=== PATIENT | male | born 1995 | race Caucasian/White ===

== ENCOUNTER 2020-02-10 18:07 | Emergency (ER) | payer OTHER ==
[~2020-02-10] VITALS: Ht 170.2 cm; Wt 69.9 kg
--- NOTE | 2020-02-10 18:18 | PHYS DOC ---
General Adult HPI: HPI: Patient is a 24 year old male who presents with above hx and complaints (JOHNNY PEGUERO MD) HPI: Patient is a 24-year-old male presenting to the ED today complaining of an abscess on the left lateral neck as well as the left cheek region. Patient states symptoms began 2 days ago, he was seen at urgent care yesterday and started on clindamycin. He states symptoms have not improved. Denies any fever. Denies any nausea vomiting. He states the abscess on the left side of the neck drained mild amount of yellow-greenish material today. (KWAME BERRY APRN) Review of Systems: Review of Systems: Constitutional: Denies fever or chills Eyes: Denies change in visual acuity HENT: Denies nasal congestion or sore throat Respiratory: Denies cough or shortness of breath Cardiovascular: Denies chest pain or edema GI: Denies abdominal pain, nausea, vomiting, bloody stools or diarrhea : Denies dysuria Musculoskeletal: Denies back pain or joint pain Integument: Denies rash Neurologic: Denies headache, focal weakness or sensory changes Endocrine: Denies polyuria or polydipsia Lymphatic: Denies swollen glands Psychiatric: Denies depression or anxiety (JOHNNY PEGUERO MD) Review of Systems: Constitutional: Denies fever or chills [] Eyes: Denies change in visual acuity, redness, or eye pain [] HENT: Denies nasal congestion or sore throat [] Respiratory: Denies cough or shortness of breath [] Cardiovascular: No additional information not addressed in HPI [] GI: Denies abdominal pain, nausea, vomiting, bloody stools or diarrhea [] : Denies dysuria or hematuria [] Musculoskeletal: Denies back pain or joint pain [] Integument: Reports abscess to the left lateral neck, left cheek Neurologic: Denies headache, focal weakness or sensory changes [] (KWAME BERRY APRN) Physical Exam: PE: Constitutional: Well developed, well nourished, no acute distress, non-toxic appearance. [] HENT: Normocephalic, atraumatic, bilateral external ears normal, oropharynx moist, no oral exudates, nose normal. [] Eyes: PERRLA, EOMI, conjunctiva normal, no discharge. [] Neck: Normal range of motion, no tenderness, supple, no stridor. [] Cardiovascular:Heart rate regular rhythm, no murmur [] Lungs & Thorax: Bilateral breath sounds clear to auscultation [] Abdomen: Bowel sounds normal, soft, no tenderness, no masses, no pulsatile masses. [] Skin: Warm, dry, no erythema, no rash. [] Back: No tenderness, no CVA tenderness. [] Extremities: No tenderness, no cyanosis, no clubbing, ROM intact, no edema. [] Neurologic: Alert and oriented X 3, normal motor function, normal sensory function, no focal deficits noted. [] Psychologic: Affect normal, judgement normal, mood normal. [] (JOHNNY PEGUERO MD) PE: Constitutional: Well developed, well nourished, no acute distress, non-toxic appearance. [] HENT: Normocephalic, atraumatic, bilateral external ears normal, oropharynx moist, no oral exudates, nose normal. [] Eyes: PERRLA, EOMI, conjunctiva normal, no discharge. [] Neck: Normal range of motion, no tenderness, supple, no stridor. [] Cardiovascular:Heart rate regular rhythm, no murmur [] Lungs & Thorax: Bilateral breath sounds clear to auscultation [] Abdomen: Bowel sounds normal, soft, no tenderness, no masses, no pulsatile masses. [] Skin: Bearded face. Airways open, left lateral neck with an indurated area approximately 5 x 3 cm with a couple opened up regions not draining right now. The area is erythematous, there is no fluctuance in the area. The area is warm and tender to touch. Left upper cheek with a tiny scabbed up region approximately 0.5 x 0.5 cm with surrounding cellulitis. There is small amount of swelling noted on the left side of the face, and left lateral neck. Back: No tenderness, no CVA tenderness. [] Extremities: No tenderness, no cyanosis, no clubbing, ROM intact, no edema. [] Neurologic: Alert and oriented X 3, normal motor function, normal sensory function, no focal deficits noted. [] Psychologic: Affect normal, judgement normal, mood normal. [] (KWAME BERRY APRN) EKG: EKG: [] (JOHNNY PEGUERO MD) Radiology/Procedures: Radiology/Procedures: [] (JOHNNY PEGUERO MD) Radiology/Procedures: PROCEDURE: CT SOFT TISSUE NECK W/CONTRAST Exam: CT neck with contrast INDICATION: Left lateral neck abscess TECHNIQUE: Sequential axial images through the neck obtained following the administration of 72 mL of Isovue-370 IV contrast. Sagittal and coronal reformatted images were reconstructed from the axial data and reviewed. Comparisons: None FINDINGS: Visualized intracranial structures are unremarkable. There is mild mucosal thickening of the left maxillary sinus. Cervical vasculature is patent. Nasopharynx, oropharynx, hypopharynx and larynx are unremarkable. Thyroid and salivary glands are within normal limits. There is extensive soft tissue stranding and edema overlying the left face. There is a peripherally enhancing fluid collection overlying the angle of the mandible on the left which measures approximately 1.4 cm seen best on series 3 image 26. Additionally there is a small amount of fluid in the subcutaneous fat of the left lateral neck series 3 image 40, which measures approximately 1.1. No enlarged cervical lymph nodes are identified. No suspicious osseous lesions or acute fractures. Visualized lung apices are clear. IMPRESSION: Peripherally enhancing fluid collection in the subcutaneous tissues of the left face overlying the angle the mandible measuring 1.4 cm favored represent abscess. Additionally there is a small fluid collection in the subcutaneous fat of the left lateral neck measuring 1.1 cm which may also represent a small abscess. There is extensive soft tissue edema and stranding overlying the left neck. Exposure: One or more of the following in the visualized dose reduction techniques were utilized for this examination: 1. Automated exposure control 2. Adjustment of the MA and/or KV according to patient size 3. Use of iterative of reconstructive technique Electronically signed by: Boo Washington MD (02/10/2020 7:19 PM) [facility] DICTATED AND SIGNED BY: BOO WASHINGTON MD DATE: 02/10/201911 CC: JOHNNY PEGUERO MD; KWAME BERRY APRN; PCP,NO ~MTH0 0 (KWAME BERRY APRN) Heart Score: Risk Factors: Risk Factors: DM, Current or recent (<one month) smoker, HTN, HLP, family history of CAD, obesity. Risk Scores: Score 0 - 3: 2.5% MACE over next 6 weeks - Discharge Home Score 4 - 6: 20.3% MACE over next 6 weeks - Admit for Clinical Observation Score 7 - 10: 72.7% MACE over next 6 weeks - Early Invasive Strategies (JOHNNY PEGUERO MD) Course & Med Decision Making: Course & Med Decision Making Pertinent Labs and Imaging studies reviewed. (See chart for details) [] (JOHNNY PEGUERO MD) Course & Med Decision Making This is a 24-year-old male patient presenting to the ED today with an abscess on the left lateral neck as well as left cheek. Patient was seen at urgent care yesterday and started on clindamycin. He reports no improvement. Vitals on arrival to the ED temperature 97.9, heart rate 114, blood pressure 128/86, respiration 14 on room air, O2 sats 99%. CBC with a WBC of 11.5, CMP with no acute findings. Lactic is normal. CT of the neck soft tissuePeripherally enhancing fluid collection in the subcutaneous tissues of the left face overlying the angle the mandible measuring 1.4 cm favored represent abscess. Additionally there is a small fluid collection in the subcutaneous fat of the left lateral neck measuring 1.1 cm which may also represent a small abscess. There is extensive soft tissue edema and stranding overlying the left neck. Patient was given Zosyn and vancomycin in the ED. Patient is to be transferred to hospital with ENT, he needs IV antibiotics. Spoke to [facility] transfer line, awaiting for an accepting physician. [facility] stated they do not have any beds. I spoke with Dr. Garcia, he requested we discharge patient on Augmentin to take with the clindamycin. He stated patient should call him in 48 hours if not improving. (KWAME BERRY APRN) Dragon Disclaimer: Dragon Disclaimer: This electronic medical record was generated, in whole or in part, using a voice recognition dictation system. (JOHNNY PEGUERO MD) Departure Departure: Impression: Primary Impression: Cutaneous abscess of neck Additional Impressions: Cellulitis, neck Mandibular abscess Disposition: 01 DC HOME SELF CARE/HOMELESS Condition: STABLE Referrals: PCP,NO (PCP) FEI GARCIA MD Call him in 48 hours if not improving otherwise follow up with your doctor next week Patient Instructions: Abscess, Cellulitis, [id number] Additional Instructions: You were evaluated in the emergency room with abscess and cellulitis on the neck and chest. Continue taking clindamycin, also take the prescribed antibiotic called Augmentin. Continue applying warm compresses to the affected area on your face. Dr. Garcia at [facility] would like you to call him on [phone] if not improving in 48 hours. Scripts Hydrocodone Bit/Acetaminophen (HYDROCODONE-APAP 5-325 ) 1 Each Tablet 1 TAB PO PRN Q6HRS PRN for PAIN, #14 TAB 0 Refills Prov: KWAME BERRY APRN 02/10/20 Amoxicillin/Potassium Clav (AUGMENTIN 875-125 TABLET) 1 Each Tablet 1 TAB PO BID for 10 Days, #14 TAB 0 Refills Prov: KWAME BERRY APRN 02/10/20 Dragon Disclaimer This chart was dictated in whole or in part using Voice Recognition software in a busy, high-work load, and often noisy Emergency Department environment. It may contain unintended and wholly unrecognized errors or omissions. (JOHNNY PEGUERO MD) Attending Co-Sign Attending Co-Sign The patient was seen and interviewed as well as examined at the bedside. The chart was reviewed. The case was discussed. Agree with the plan of care. (JOHNNY PEGUERO MD) JOHNNY PEGUERO MD Feb 10, 2020 18:18 KWAME BERRY APRN Feb 10, 2020 18:35
[2020-02-10] MEDS ORDERED: IV NORMAL SALINE 1,000ML 1,000 ML IV ONE (18:30)
[2020-02-10] MEDS ORDERED: PIPERACILLIN/TAZOBACTAM 4.5 GM in IV NORMAL SALINE 50ML 50 ML IV ONE (18:30)
[2020-02-10] MEDS ORDERED: MORPHINE SULFATE 4 MG/ML DISP.SYRIN. IV/SQ PRN (18:30)
[2020-02-10] MEDS ORDERED: 0.9 % SODIUM CHLORIDE 10 ML DISP.SYRIN. IV PRN (18:30)
[2020-02-10] MEDS ORDERED: VANCOMYCIN PER PHARMACY MC ONE (18:30)
[2020-02-10] MEDS ORDERED: DIPH,PERTUSS(ACELL),TET VAC/PF 0.5 ML SYRINGE. VAX IM ONE (18:30)
[2020-02-10] MEDS ORDERED: IOHEXOL 300 MG/ML 75 ML VIAL. IV ONE (18:45)
[2020-02-10] MEDS ORDERED: VANCOMYCIN 1.75 GM in IV NORMAL SALINE 500ML 500 ML IV ONE (19:00)
[2020-02-10 19:09] LABS: BASO # 0.1 x10^3/uL (0.0-0.2); BASO % 1 % (0-3); EOS # 0.2 x10^3/uL (0.0-0.7); EOS % 2 % (0-3); HEMATOCRIT 41.2 % (39.0-53.0); HEMOGLOBIN 13.6 g/dL (13.0-17.5); LYMPH % 17 % (24-48); MEAN CORPUSCULAR HEMOGLOBIN 30 pg (25-35); MEAN CORPUSCULAR HGB CONC 33 g/dL (31-37); MEAN CORPUSCULAR VOLUME 89 fL (79-100); MONO # 0.9 x10^3/uL (0.0-1.1); MONO % 8 % (0-9); NEUT # 8.3 x10^3uL (1.8-7.7); NEUT % 72 % (31-73); PLATELET COUNT 399 x10^3/uL (140-400); RED BLOOD COUNT 4.61 x10^6/uL (4.30-5.70); RED CELL DISTRIBUTION WIDTH 12.7 % (11.5-14.5); WHITE BLOOD COUNT 11.5 x10^3/uL (4.0-11.0)
[2020-02-10 19:11] LABS: CALCIUM 9.4 mg/dL (8.5-10.1); CREATININE 0.9 mg/dL (0.7-1.3); GFR 102.8
[2020-02-10] MEDS ORDERED: PIPERACILLIN/TAZOBACTAM 4.5 GM VIAL IV ONE (19:12)
[2020-02-10] MEDS ORDERED: IV NORMAL SALINE 50ML 50 ML ONE (19:12)
--- NOTE | 2020-02-10 19:21 | RAD ---
Exam: CT neck with contrast INDICATION: Left lateral neck abscess TECHNIQUE: Sequential axial images through the neck obtained following the administration of 72 mL of Isovue-370 IV contrast. Sagittal and coronal reformatted images were reconstructed from the axial da ta and reviewed. Comparisons: None FINDINGS: Visualized intracranial structures are unremarkable. There is mild mucosal thickening of the left max illary sinus. Cervical vasculature is patent. Nasopharynx, oropharynx, hypopharynx and larynx are unremarkable. Thyroid and salivary glands are wit hin normal limits. There is extensive soft tissue stranding and edema overlying the left face. There is a peripherally e nhancing fluid collection overlying the angle of the mandible on the left which measures approximatel y 1.4 cm seen best on series 3 image 26. Additionally there is a small amount of fluid in the subcuta neous fat of the left lateral neck series 3 image 40, which measures approximately 1.1. No enlarged cervical lymph nodes are identified. No suspicious osseous lesions or acute fractures. Visualized lung apices are clear. IMPRESSION: Peripherally enhancing fluid collection in the subcutaneous tissues of the left face overlying the an gle the mandible measuring 1.4 cm favored represent abscess. Additionally there is a small fluid perla ection in the subcutaneous fat of the left lateral neck measuring 1.1 cm which may also represent a s mall abscess. There is extensive soft tissue edema and stranding overlying the left neck. Exposure: One or more of the following in the visualized dose reduction techniques were utilized for this examination: 1. Automated exposure control 2. Adjustment of the MA and/or KV according to patient size 3. Use of iterative of reconstructive technique Electronically signed by: Boo Ward MD (02/10/2020 7:19 PM) [facility]
[2020-02-10 19:23] LABS: ALBUMIN 3.7 g/dL (3.4-5.0); ALBUMIN/GLOBULIN RATIO 1.2 (1.0-1.7); TOTAL BILIRUBIN 0.4 mg/dL (0.2-1.0); TOTAL PROTEIN 6.9 g/dL (6.4-8.2)
[2020-02-10 21:14] VITALS: BP 115/68
[2020-02-10] MEDS ORDERED: AMOX1TAB61 PO (21:52)
[2020-02-10] MEDS ORDERED: HYDR-2155 PO (21:52)
== END 2020-02-10 22:11 | disposition home or self-care (01) ==
LOC: ER 18:07
DX: L02.11 Cutaneous abscess of neck (principal); L03.221 Cellulitis of neck; M27.2 Inflammatory conditions of jaws
CPT/HCPCS: 36415; 70491; 80053; 83605; 84145; 85025; 87040; 96365; 96366; 96368; 96375; 99285; J2270; J2543; J3370; J7030; J7040; Q9967